=== PATIENT | male | born 1990 | race Two or more races ===

== ENCOUNTER 2021-09-14 16:13 | Emergency (ER) | payer MEDICAID, OTHER ==
[~2021-09-14] VITALS: Ht 177.8 cm; Wt 97.5 kg
[2021-09-14 16:16] VITALS: BP 129/94
== END 2021-09-14 17:05 | disposition left against medical advice (07) ==
LOC: ER 16:13
DX: R10.9 Unspecified abdominal pain (principal); R14.0 Abdominal distension (gaseous); Z53.21 Procedure and treatment not carried out due to patient leaving prior to being seen by health care provider